=== PATIENT | female | born 1940 | race Two or more races ===

== ENCOUNTER 2025-03-10 10:42 | Emergency (ER) | payer OTHER ==
[~2025-03-10] VITALS: Ht 152.4 cm; Wt 54.9 kg
[2025-03-10] MEDS ORDERED: INDERAL LA80 MG (11:10)
[2025-03-10] MEDS ORDERED: CALAMINE LOTIO177 M1 (11:11)
[2025-03-10] MEDS ORDERED: HYDROCHLOROTHIA25 MG PO (11:11)
[2025-03-10 13:54] LABS: BASO % 0.7 % (0.1-1.2); EOS # 0.45 (0.04-0.54); EOS % 4.3 % (0.7-7.0); LYMPH # 2.47 (1.18-3.74); LYMPH % 23.6 % (19.3-53.1); MEAN PLATELET VOLUME 10.20 fl (9.4-12.4); MONO # 0.94 (0.24-0.82); MONO % 9.0 % (4.7-12.5); NEUT # 6.06 (1.56-6.13); NEUT % 57.8 % (34.0-71.1); RED CELL DISTRIBUTION WIDTH 12.8 % (11.6-14.4)
[2025-03-10 14:27] LABS: COVID-19 AG NEGATIVE (NEGATIVE)
[2025-03-10 14:35] LABS: ALT/SGPT 36.0 U/L (12-78); AST/SGOT 22.0 U/L (15-37); BILIRUBIN TOTAL 1.1 mg/dL (0.3-1.2); BUN CREA RATIO 26.0 (7.0-25.0); CREATININE SERUM 0.81 mg/dL (0.55-1.02); GFR 67.69; GLOBULINA 3.7 G/DL (2.4-3.5); GLUCOSE FASTING 106.0 mg/dL (65-100); OSMOLALITY SERUM 281.0 MOSM/KG (275-295)
[2025-03-10] MEDS ORDERED: PROTONIX20 MG PO (15:42)
[2025-03-10] MEDS ORDERED: PEPCID AC20 MG PO (15:42)
[2025-03-10 16:02] VITALS: BP 130/80; O2SAT 100
== END 2025-03-10 16:03 | disposition home or self-care (01) ==
LOC: ER 10:42
PROVIDERS: Preventive Medicine Public Health & General Preventive Medicine
DX: R10.84 Generalized abdominal pain (principal); Z20.822 Contact with and (suspected) exposure to COVID-19; I10 Essential (primary) hypertension